=== PATIENT | male | born 1955 | race African-American/Black ===

== ENCOUNTER 2016-07-12 12:26 | Emergency (ER) | payer OTHER ==
[2016-07-12] MEDS ORDERED: DIPH/PERTUSS(ACELL)/TETANUS VAC/PF 0.5 ML SYR (>=10YO) IM ONE (12:51)
--- NOTE | 2016-07-12 12:52 | ER Document Report ---
ED Medical Screen (RME) - General Stated Complaint: FOOT LACERATION Time seen by provider: 12:20 Mode of Arrival: Wheelchair Information source: Patient Notes: 60-year-old male dropped a ceramic toilet on his left foot causing a laceration and bleeding. Tetanus is not current. Physical Exam - Vital signs Vitals: Temp Pulse Resp BP Pulse Ox 98.0 F 64 18 122/79 100 07/12/16 12:27 07/12/16 12:27 07/12/16 12:27 07/12/16 12:27 07/12/16 12:27 Course - Vital Signs Vital signs: Temp Pulse Resp BP Pulse Ox 98.0 F 64 18 122/79 100 07/12/16 12:27 07/12/16 12:27 07/12/16 12:27 07/12/16 12:27 07/12/16 12:27
--- NOTE | 2016-07-12 13:10 | ER Document Report ---
ED Extremity Problem, Lower - General Chief Complaint: Puncture Wound to Foot Stated Complaint: FOOT LACERATION Time seen by provider: 13:10 Mode of Arrival: Wheelchair Information source: Patient Notes: 60-year-old male presents to ED for laceration to the left foot when he dropped a porcelain toilet on his foot and it broke broke TRAVEL OUTSIDE OF THE [place] IN LAST 30 DAYS: No - HPI Patient complains to provider of: Pain, Swelling, Other - Laceration left foot Location: Foot Occurred: This morning Where: Home Onset/Duration: Sudden Quality of pain: Sharp Severity: Moderate Pain Level: 3 Recent injury: Yes Associated symptoms: Painful ambulation Exacerbated by: Movement, Walking Relieved by: Nothing Past Medical History - General Information source: Patient - Social History Smoking Status: Never Smoker Cigarette use (# per day): No Chew tobacco use (# tins/day): No Smoking Education Provided: No Frequency of alcohol use: Occasional Drug Abuse: None Occupation: none Lives with: Family Family History: Arthritis, CAD, CVA, DM, Hyperlipidemia, Hypertension, Thyroid Disfunction - Past Medical History Cardiac Medical History: Reports: None Pulmonary Medical History: Reports: None EENT Medical History: Reports: None Neurological Medical History: Reports: None Endocrine Medical History: Reports: None Renal/ Medical History: Reports: None Malignancy Medical History: Reports None GI Medical History: Reports: None Musculoskeltal Medical History: Reports None Skin Medical History: Reports None Psychiatric Medical History: Reports: None Traumatic Medical History: Reports: None Infectious Medical History: Reports: None Surgical Hx: Negative Past Surgical History: Reports: None - Immunizations Immunizations up to date: Yes Hx Diphtheria, Pertussis, Tetanus Vaccination: Yes - 07/12/2016 Review of Systems - Review of Systems Constitutional: No symptoms reported EENT: No symptoms reported Cardiovascular: No symptoms reported Respiratory: No symptoms reported Gastrointestinal: No symptoms reported Genitourinary: No symptoms reported Male Genitourinary: No symptoms reported Musculoskeletal: No symptoms reported Skin: Other - Laceration across the top of his foot Hematologic/Lymphatic: No symptoms reported Neurological/Psychological: No symptoms reported -: Yes All other systems reviewed and negative Physical Exam - Vital signs Vitals: Temp Pulse Resp BP Pulse Ox 98.0 F 64 18 122/79 100 07/12/16 12:27 07/12/16 12:27 07/12/16 12:27 07/12/16 12:27 07/12/16 12:27 Interpretation: Normal - General General appearance: Appears well, Alert - HEENT Head: Normocephalic, Atraumatic Eyes: Normal Pupils: PERRL - Respiratory Respiratory status: No respiratory distress Chest status: Nontender Breath sounds: Normal Chest palpation: Normal - Cardiovascular Rhythm: Regular Heart sounds: Normal auscultation Murmur: No - Abdominal Inspection: Normal Distension: No distension Bowel sounds: Normal Tenderness: Nontender Organomegaly: No organomegaly - Back Back: Normal, Nontender - Extremities General upper extremity: Normal inspection, Nontender, Normal color, Normal ROM , Normal temperature General lower extremity: Normal inspection, Nontender, Normal color, Normal ROM , Normal temperature, Normal weight bearing. No: Lindsey's sign - Neurological Neuro grossly intact: Yes Cognition: Normal Orientation: AAOx4 Serena Coma Scale Eye Opening: Spontaneous [place] Coma Scale Verbal: Oriented [place] Coma Scale Motor: Obeys Commands [place] Coma Scale Total: 15 Speech: Normal Motor strength normal: LUE, RUE, LLE, RLE Sensory: Normal - Psychological Associated symptoms: Normal affect, Normal mood - Skin Skin Temperature: Warm Skin Moisture: Dry Skin Color: Normal Skin irregularity: Laceration Location of irregularity: Back - Couple of left foot Course - Re-evaluation Re-evalutation: 07/12/16 22:[address] Rosario for this large laceration to the foot and call consulted Dr. Gardner for a flexor tendon laceration to the top of the foot. He stated I should place the patient on Augmentin clean the wound very well and then sutured shut have the patient follow-up with him tomorrow by telephone to schedule appointment to repair the tendon. And put the patient in a posterior splint. Patient was started on Augmentin and Percocet. Sterile procedure was used seizure to clean and suture this wound. - Vital Signs Vital signs: Temp Pulse Resp BP Pulse Ox 97.6 F 54 L 18 112/88 H 99 07/12/16 15:14 07/12/16 15:14 07/12/16 12:27 07/12/16 15:14 07/12/16 15:14 - Diagnostic Test Radiology reviewed: Image reviewed, Reports reviewed Procedures - Immobilization Left Foot Time completed: 14:57 Pre-Proc Neuro Vasc Exam: Normal Immobilizer type: Posterior ankle Performed by: PCT Post-Proc Neuro Vasc Exam: Normal Alignment checked and good: Yes - Laceration/Wound Repair Left Foot Time completed: 14:57 Wound length (cm): 3.4 Wound's Depth, Shape: Into muscle, Other - Flexor tendon to the left foot laceration Laceration pre-procedure: Sterile PPE donned, Sterile drapes applied, Other - Surgical scrub Anesthetic type: 1% Lidocaine Volume Anesthetic (mLs): 10 Irrigated w/ Saline (mLs): 150 Wound Repaired With: Sutures Suture Size/Type: 4:0 Number of Sutures: 8 Layer Closure?: No Post-procedure wound care: Sterile dressing applied, Splint applied Post-procedure NV exam normal: No Complications: Yes Discharge - Discharge Clinical Impression: flexer tendon laceration foot Foot laceration Qualifiers: Encounter type: initial encounter Laterality: left Qualified Code(s): S91.312A - Laceration without foreign body, left foot, initial encounter Condition: Stable Disposition: HOME, SELF-CARE Additional Instructions: LACERATION CARE: Your laceration has been sutured to keep the skin edges aligned during healing. The time of suture removal depends on the nature and location of your cut. Please follow the care instructions the doctor has outlined for you and return for further care, according to the schedule you've been given. Keep the wound and dressing clean. Unless you were told otherwise, you may shower daily, blotting the wound dry with a clean, unused towel. At other times, If the dressing gets wet or blood soaked, remove it and blot the wound dry, then reapply a new dressing. Unless you were instructed otherwise, dressings should be changed at least daily. If any signs of infection occur (swelling, redness, drainage, increasing tenderness, red streaks, tender lumps in the armpit or groin above the laceration, or fever), see the doctor immediately. SOAP CLEANSING: Gently wash the wound daily using a mild soap (like Ivory, Phisoderm, Neutrogena). Use warm water, rubbing gently until all debris, ooze, and crusting have been washed from the wound. Allow to dry briefly (about 10 minutes) after cleaning. Repeat this cleansing at least three times a day for the first two days and then once or twice a day. ANTIBIOTIC OINTMENT PROTECTION: Your wounds are such that dressing them is not practical or optional. After cleansing, you should apply a thin coating of antibiotic ointment ( Bacitracin, not Neosporin) to the wounds at least three times daily. This lessens infection risk, and may decrease the amount of scarring. Use a q-tip or dull butter knife, not your finger, to apply this ointment. Any debris or ooze which builds up in the ointment should be gently rubbed off with a sterile gauze pad. Harder crusting may need to be gently scrubbed off with a clean wash cloth with soap and warm water, perhaps applying a warm, wet wash cloth to the wound for ten minutes first. Development of redness, severe itching, or blistering may mean allergy to the ointment. See the doctor. TETANUS IMMUNIZATION GIVEN: You have been given an immunization against tetanus. Please record this in your records. In general, a booster is needed only once every 10 years. The tetanus shot protects against tetanus or "lockjaw," which is a complication of certain wound infections (the tetanus shot cannot protect against the actual infection). The immunization site may become warm and red due to local reaction. If this occurs, apply warm compresses and take aspirin or ibuprofen to reduce inflammation and discomfort. Return for evaluation if the reaction becomes severe. PROPHYLACTIC ANTIBIOTIC: The antibiotics which have been prescribed are designed to decrease the risk of infection. Only certain types of wounds benefit from this -- the typical cut, scrape, or burn DOES NOT require antibiotics. Of course, infection can still occur despite the use of prophylactic antibiotics. Your wound will heal with less chance of an infectious complication if you take the medication as directed. The most important dose is the FIRST dose, so don't delay filling the prescription! ORAL NARCOTIC MEDICATION: You have been given a prescription for pain control. This medication is a narcotic. It's best taken with food, as nausea can result if taken on an empty stomach. Don't operate machinery or drive within six hours of taking this medication. Do not combine this medicine with alcohol, or with any medication which can cause sedation (such as cold tablets or sleeping pills) unless you get permission from the physician. Narcotics tend to cause constipation. If possible, drink plenty of fluids and eat a diet high in fiber and fruits. FOLLOW-UP CARE: Please return in __tomorrow 07/18/2016___ Your flexor tendon of your left foot is lacerated you will need to call orthopedics first thing in the morning to schedule a follow-up visit to have this tendon repaired. You cannot wait to have this repaired you need to call first thing in the morning and schedule the repair.days for an infection check and dressing change. Your sutures should be removed in __10___ days. To facilitate a timely removal of your sutures, you may return to the Emergency Department at [facility]. You do not need to call for an appointment, but the best time to come in for suture removal is early in the morning. If you have been referred to another physician for follow-up care, call that physicians office for an appointment as you were instructed. If you experience a significant change in your laceration, or if you are concerned there may be an infection (swelling, redness, drainage, increasing tenderness, red streaks, tender lumps in the armpit or groin above the laceration, or fever) , return to the Emergency Department immediately re-evaluation. Your flexor tendon of your left foot is lacerated you will need to call orthopedics first thing in the morning to schedule a follow-up visit to have this tendon repaired. You cannot wait to have this repaired you need to call first thing in the morning and schedule the repair. Prescriptions: Oxycodone HCl/Acetaminophen [Percocet 5-325 mg Tablet] 1 tab PO Q6HP PRN #25 tablet PRN Reason: Amox Tr/Potassium Clavulanate [Augmentin 875-125 Tablet] 1 tab PO BID 10 Days Referrals: FREEMAN ADAMES MD [ACTIVE STAFF] - Follow up as needed
[2016-07-12] MEDS ORDERED: LIDOCAINE 1% INJ-PF (10 MG/ML) 30 ML SDV INJ ONE (13:58)
[2016-07-12] MEDS ORDERED: OXYCODONE-ACETAMINOPHEN 5-325 MG TABLET PO ONE (15:01)
[2016-07-12] MEDS ORDERED: AMOXICILLIN TR/POT CLAVULANATE 500-125 MG TAB PO ONE (15:01)
[2016-07-12 15:21] VITALS: BP 112/88
== END 2016-07-12 15:15 | disposition home or self-care (01) ==
LOC: ER 12:26
PROC: 0HQNXZZ Repair Left Foot Skin, External Approach (ICD-10-PCS; principal; 2016-07-12)
DX: S91.312A Laceration without foreign body, left foot, initial encounter (principal); W45.8XXA Other foreign body or object entering through skin, initial encounter
CPT/HCPCS: 99283; 90471; 73630; 90715; 12002; J3490

== ENCOUNTER 2016-07-24 10:11 | Day surgery (SDC) | payer OTHER ==
--- NOTE | 2016-07-23 08:14 | EKG REPORT ---
SEVERITY:- ABNORMAL ECG - SINUS RHYTHM NONSPECIFIC T ABNORMALITIES, INFERIOR LEADS : Confirmed by: Denise Baliey MD 23-Jul-2016 08:12:18
[2016-07-23 08:54] LABS: HEMATOCRIT 41.4 % (37.9-51.0); HEMOGLOBIN 13.6 g/dL (13.5-17.0); HGB HCT DIFFERENCE -0.6; MEAN CORPUSCULAR HEMOGLOBIN 26.6 pg (27.0-33.4); MEAN CORPUSCULAR HGB CONC 32.8 g/dL (32.0-36.0); MEAN CORPUSCULAR VOLUME 81 fl (80-97); RED CELL DISTRIBUTION WIDTH 13.8 % (11.5-14.0); WHITE BLOOD COUNT 4.6 10^3/uL (4.0-10.5)
[2016-07-23 09:21] LABS: ANION GAP 10 (5-19); BLOOD UREA NITROGEN 18 mg/dL (7-20); CALCIUM 9.8 mg/dL (8.4-10.2); CARBON DIOXIDE 29 mmol/L (22-30); CHLORIDE 102 mmol/L (98-107); CREATININE RESULT 1.28 mg/dL (0.52-1.25); GLUCOSE 85 mg/dL (75-110); POTASSIUM 4.6 mmol/L (3.6-5.0); SODIUM 141.2 mmol/L (137-145)
[2016-07-23 10:36] LABS: APPEARANCE,URINE CLEAR; BILIRUBIN,URINE NEGATIVE (NEGATIVE); GLUCOSE, URINE NEGATIVE (NEGATIVE); KETONES,URINE NEGATIVE (NEGATIVE); LEUKOCYTE ESTERASE,URINE NEGATIVE (NEGATIVE); NITRITE,URINE NEGATIVE (NEGATIVE); PROTEIN,URINE NEGATIVE (NEGATIVE); UROBILINOGEN,URINE NEGATIVE mg/dL (<2.0)
[~2016-07-24 10:11] MED LIST: CEFAZOLIN 2 GM/D5W RTU 2 GM/50 ML RTUPB IV PRN; DEXAMETHASONE SOD PHOSPHATE INJ 4 MG/1 ML VIAL ONE; LACTATED RINGERS 1000 ML IV PRN; LIDOCAINE 2% INJ-PF (20 MG/ML) 10 ML AMPUL ONE; METOCLOPRAMIDE HCL INJ/PF 10 MG/2 ML SDV ONE; ONDANSETRON HCL INJ/PF 4 MG/2 ML SDV ONE; SUCCINYLCHOLINE CHLORIDE INJ 200 MG/10 ML VIAL ONE
[2016-07-24] MEDS ORDERED: FENTANYL CITRATE INJ/PF 250 MCG/5 ML AMPULE ONE (12:39)
[2016-07-24] MEDS ORDERED: EPHEDRINE SULFATE INJ 50 MG/1 ML AMPULE ONE (12:39)
[2016-07-24] MEDS ORDERED: MIDAZOLAM 2 MG/2 ML INJ ONE (12:39)
[2016-07-24] MEDS ORDERED: PROPOFOL INJ 200 MG/20 ML VIAL IV ONE ×2 (12:40→12:48)
[2016-07-24] MEDS ORDERED: DEXMEDETOMIDINE INJ 80 MCG/20 ML VIAL IV ONE (12:40)
[2016-07-24] MEDS ORDERED: ACETAMINOPHEN 100 ML IV ONE (12:40)
[2016-07-24] MEDS ORDERED: MORPHINE SULFATE 10 MG/ML INJ IV PRN (13:36)
[2016-07-24] MEDS ORDERED: PROMETHAZINE HCL INJ 25 MG/1 ML VIAL IV PRN ×2 (13:36)
[2016-07-24] MEDS ORDERED: DIPHENHYDRAMINE HCL 50 MG/ML VIAL IV PRN (13:36)
[2016-07-24] MEDS ORDERED: MEPERIDINE HCL/PF INJ 25 MG/1 ML DISP.SYRIN IV PRN (13:36)
[2016-07-24] MEDS ORDERED: FENTANYL CITRATE INJ/PF 100 MCG/2 ML AMPUL IV PRN ×3 (13:36)
[2016-07-24] MEDS ORDERED: BUPIVACAINE HCL 0.25 % INJ/PF (2.5 MG/1 ML) 30 ML VIAL ONE (14:42)
[2016-07-24] MEDS ORDERED: KETOROLAC TROMETHAMINE INJ/PF 30 MG/1 ML SDV ONE (15:09)
[2016-07-24] MEDS: FENTANYL CITRATE INJ/PF 100 MCG/2 ML AMPUL ONE ×3 (15:20→15:32)
--- NOTE | 2016-07-24 15:32 | PDOC DISCHARGE SUMMARY ---
Discharge Summary (SDC) - Discharge Final Diagnosis: Laceration to EHL and tibialis anterior tendons Date of Surgery: 07/24/16 Condition: Good Treatment or Instructions: Keep cast dry clean and intact. Okay to toe-touch is weightbearing with crutches. Follow-up in 10-14 days. Prescriptions: Oxycodone HCl/Acetaminophen [Percocet 5-325 mg Tablet] 1 - 2 tab PO ASDIR PRN # 40 tablet PRN Reason: Respiratory Treatments at Home: Deep Breathing/Coughing Discharge Activity: Keep Legs Elevated, No Lifting/Push/Pulling Home Care Assistance: None Needed Adaptive Devices on Discharge: Axillary Crutches Report the Following to Your Physician Immediately: Vomiting, Increase in Pain, Fever over 101 Degrees, Unusual Bleeding, Redness, Swelling, Drainage-Yellow, Drainage-Green, Drainage-Foul Smelling
[2016-07-24] MEDS ORDERED: OXYCODONE-ACETAMINOPHEN 5-325 MG TABLET PO PRN ×2 (15:48)
[2016-07-24 17:42] VITALS: BP 132/90
--- NOTE | 2016-09-16 01:33 | OPERATIVE REPORT E ---
Operative Report NAME: SUZETTE WELLS : 1955 AGE: 60Y DATE OF SURGERY: 07/24/16 ROOM: PREOPERATIVE DIAGNOSES: 1. Left anterior tibialis tendon laceration. 2. Left extensor hallucis longus tendon laceration. POSTOPERATIVE DIAGNOSES: 1. Left anterior tibialis tendon laceration. 2. Left extensor hallucis longus tendon laceration. PROCEDURES PERFORMED: 1. Direct anterior tibialis tendon repair. 2. Extensor hallucis longus transfer to anterior tibialis tendon. SURGEON: FREEMAN SAEED M.D. ANESTHESIA: General. IMPLANTS: None. COMPLICATIONS: None. DISPOSITION: Stable to PACU. ESTIMATED BLOOD LOSS: 10 mL. DESCRIPTION OF PROCEDURE: Patient was brought to the operating room and intubated in supine position. A tourniquet was applied to the left thigh. The left lower extremity was prepped and draped in a normal sterile surgical fashion. A timeout was done identifying the left foot laceration as the correct site. Esmarch was used to exsanguinate the extremity and the tourniquet was inflated at 300 mmHg. Stitches were cut and then laceration was extended both proximally and distally at the edges. This allowed for retraction and exposure of the laceration and allowed me to explore and find the proximal and distal ends of the tendon laceration. I was able to identify the anterior tibialis tendon first, which is larger and more medial. I was able to then use a FiberWire to reattach both ends. I used a crocodile stitch on both ends to allow to tie them together. I was able to throw simple stitches in between to reinforce my repair. Identifying the EHL noted, I attempted to repair this tendon to the stump on the great toe distal stump side but because of high tension, the repair failed, and therefore I made the decision to grab the proximal tendon tear and incorporate and transfer to the anterior tibialis tendon which I had just repaired. This repair was done using a FiberWire stitch and incorporated tendon. I was able to then explore and visualize the superficial peroneal nerve which was intact. Irrigation was used to clean the wound, and then I proceeded to close the incision using 3-0 nylon in a horizontal mattress fashion. Xeroform 4 x4 dressing was applied followed by ABD pad. Patient was over-wrapped with a Sof-Rol and then placed in a short leg cast. Prior to placing him in a cast, tourniquet was let down. Drapes were removed, and then patient was placed in a short leg cast. Patient then was successfully extubated and sent to PACU in a stable condition. DICTATING PHYSICIAN: Erik MILLER [id number] PHY#: [id number] ID: [id number] JOB#: [id number] ACCT: [id number] cc:FREEMAN SAEED M.D. > MTDD
== END 2016-07-24 17:30 | disposition home or self-care (01) ==
LOC: OROUT 10:11
PROVIDERS: ATTEND Orthopaedic Surgery
PROC: 0LXW0ZZ Transfer Left Foot Tendon, Open Approach (ICD-10-PCS; 2016-07-24)
PROC: 0LQW0ZZ Repair Left Foot Tendon, Open Approach (ICD-10-PCS; principal; 2016-07-24 12:30)
DX: S96.922A Laceration of unspecified muscle and tendon at ankle and foot level, left foot, initial encounter (principal); S91.312A Laceration without foreign body, left foot, initial encounter; X58.XXXA Exposure to other specified factors, initial encounter; Y92.69 Other specified industrial and construction area as the place of occurrence of the external cause; E78.00 Pure hypercholesterolemia, unspecified; I10 Essential (primary) hypertension
CPT/HCPCS: 93005; 36415; 85027; 80048; 81001; 71020; 93010; 27690; 28200; J2250; J1100; J3010 ×2; J1885; J2765; J0330; J2405; J2704; J3490 ×2; J0690; J0131; 1470